=== PATIENT | female | born 1995 | race Hispanic/Latino ===

== ENCOUNTER 2023-07-10 01:23 | Day surgery (SDC) | payer OTHER, SELFPAY ==
--- NOTE | 2023-07-07 12:14 | PC.NURSE ---
Addendum entered by Calista Alfrde RN 07/07/23 13:23: PATIENT DECIDING ON PHARMACY- WILL TELL US ON DAY OF SURGERY. SALVAGE MECHANIC'S NAME IS SUSAN, THEY WILL BRING HER PHONE NUMBER ON DAY OF SURGERY. Original Note: Report to the Outpatient Waiting Room, entrance under the green pavilion located off [facility], at time __8:30AM on date ___07/10/23____. Planned Procedure Time: __10:30AM . Time changes happen often and if your time is changed the preop area will call you the afternoon before. - You and your visitor will be asked to self-screen and do not enter if you have any COVID symptoms. - A mask is optional within the hospital at this time. Patients may have clear liquids (water, carbonated beverages, clear teas, apple juice) until 3 hours prior to surgery with a maximum of 20 ounces. - No food from midnight until time of surgery. Take the following medications with a SIP of water the morning of surgery: NONE DO NOT STOP ANY OF YOUR OTHER PRESCRIPTION MEDICATIONS PRIOR TO SURGERY ?EXCEPT THE FOLLOWING Medications to discontinue per physician NONE Date to take last dose Please no make-up, nail slovenian, hairspray, perfume, deodorant, or body powder the day of surgery. No jewelry (including any body piercings) or valuables the day of surgery, leave them at home. Please take a shower or bath the night before, or the morning of, surgery with an antibacterial soap. Wear comfortable, loose fitting clothing. - Jewelry must be removed prior to entering the operating room. Rings and piercings that are not removed may be cut off. - The hospital will not accept responsibility for valuables. - Please leave all valuables, including medications, at home the day of surgery. If you are going home after surgery, a licensed auto parts delivery driver must drive you home. - NO public transportation without another adult if you receive anesthesia. - We recommend that an adult stay with you for 24 hours following discharge. - We also recommend that you do not drive, make important decision, drink alcoholic beverages, or take any drugs that were not prescribed by your health care provider for at least 24 hours after your discharge time. Follow any additional instructions given to you from your surgeon. If you or anyone in your household have experienced Covid symptoms in the past week, please notify your surgeon or the nurse liaison at the phone number below for possible testing. Telephone instructions given to ___PATIENT and asked if any additional questions and then verbalized understanding. Patient advised to call surgeon office or pre surgery nurse liaison [phone] if any additional questions.
[2023-07-07 12:35] VITALS: BMI 26.7
[2023-07-10] VITALS (9 sets, daily range): BP systolic 96–109; BP diastolic 60–72; PULSE 64–78; RESP 10–18; TEMP 36.4; O2SAT 98–100
[2023-07-10] MEDS: LACTATED RINGERS 1,000 ML 30 ML IV CONT ×2 (08:30→10:34)
[2023-07-10] MEDS: GABAPENTIN 300 MG CAPSULE PO (08:30)
[2023-07-10] MEDS: ACETAMINOPHEN 500 MG TABLET 1000 MG PO (08:30)
--- NOTE | 2023-07-10 08:42 | P.PNAN_ITS ---
Anes - Initial Pre Proc Eval Procedure: Operation Date: 07/10/23 09:00 Proposed Procedures p Diagnostic Laparoscopy, Bilateral Laparoscopic Salpingectomy - Daniella Ochoa DO Date/Time: 07/10/23 08:42 Surgeon: Daniella Ochoa DO Pre Op Diagnosis: desires sterilization Patient Data Age: 28 Gender: F Height: 1.47 m Weight: 58 kg Allergies Allergy/AdvReac Type Severity Reaction Status Date / Time No Known Allergies Allergy Verified 07/07/23 12:33 Home Medications Medication Instructions Recorded Confirmed Type No Home Medications 07/07/23 07/07/23 History Patient hx anesthesia problems: none Family hx anesthesia problems: none Results Review: All pre-operative results and documents have been reviewed as part of the pre- operative evaluation. [facility] Social History Social History Smoking status: Never smoker Living arrangements: with family Additional living arrangements comments: SIGNIFICANT OTHER & CHILDREN Spiritual care concerns: No Anes - Eval Final PreProcedure Day of Procedure 07/10/23 08:42 Patient weight: overweight Heart: regular rate and rhythm Lungs: clear to auscultation Airway: Mallampati scale class II Neurological: alert and oriented Last oral intake: >/= 8 hours ASA classification: II Emergent: no Anesthetic plan: proceed Anesthesia type and monitoring: general ETT and standard monitoring Results Review: All pre-operative results and documents have been reviewed as part of the pre- operative evaluation. Informed Consent: The patient's anesthetic plan and its attendant risks and benefits were discussed with the patient/family/POA. Questions were solicited and answers provided to the satisfaction of the patient/family/POA.
--- NOTE | 2023-07-10 08:49 | S_PTH ---
PATIENT: Mel Lilly LOC: [facility] U#:[id number] AGE/SX: 28/F ROOM: RE07/10/[address]: Daniella Ochoa, DO : 1995 BED: DIS: 07/10/2023 SPEC #: [id number] RECD: 07/10/23 11:46 STATUS: LAURA SERRA #: [id number] ENDER: 07/10/23 08:[address]: Gabriela,Daniella Grier DEPT: [facility] Surgical RECD BY: Jana Mars ENTERED: 07/10/23 11:46 SP TYPE: Surgical OTHR DR: UNKNOWN,DOCTOR Tissues: A - Fallopian Tube Single B - Fallopian Tube Single Procedures: Gross and Microscopic Level 2 Hematoxylin and Eosin Stain
--- NOTE | 2023-07-10 08:59 | WPDHPUPDATE1 ---
History and Physical Update Update Date/Time: 07/10/23 08:59 History and Physical has been reviewed, including an updated exam of the patient. There are NO changes in the patient's condition. Risks, benefits, and alternatives have been discussed and questions answered. Patient agrees to proceed with procedure.
--- NOTE | 2023-07-10 08:59 | PM.IMHP ---
H&P: HPI History of Present Illness Date/Time: 07/10/23 08:59 Chief Complaint: I'm here to have my tubes out Narrative: Patient here desires permanent sterilization via diagnostic laparoscopy, bilateral salpingectomy Review of Systems Review of Systems: All systems reviewed & are unremarkable except as noted in HPI and below PMFSH Social History Social History Smoking status: Never smoker Living arrangements: with family Additional living arrangements comments: SIGNIFICANT OTHER & CHILDREN Spiritual care concerns: No Meds Home Medications and Allergies Home Medications Medication Instructions Recorded Confirmed Type No Home Medications 07/07/23 07/07/23 History Allergies Allergy/AdvReac Type Severity Reaction Status Date / Time No Known Allergies Allergy Verified 07/07/23 12:33 Exam Const: General: comfortable and no acute distress Eyes: General: appearance normal, both eyes and all related structures Resp: Effort & Inspection: normal respiratory effort Auscultation: clear to auscultation bilaterally Cardio: Rate: regular rate Rhythm: regular rhythm GI: GI Palp: Yes Soft to palpation Auscultation: normal bowel sounds Assessment and Plan Assessment and plan (1) Sterilization: Code(s): Z30.2 - Encounter for sterilization Status: Acute
[2023-07-10] MEDS: BUPivacaine HCL 0.25% PF 30 ML VIAL INFILTRATE (09:21)
--- NOTE | 2023-07-10 09:59 | P.OP_ITS ---
Procedure Note - Detailed Date of Procedure 07/10/23 Pre-op Diagnosis desires sterilization Post-op Diagnosis Same Procedure Performed Diagnostic laparoscopy, bilateral salpingectomy Surgeon Daniella Ochoa, DO Anesthesia General Indications Desires permanent sterilization Findings Normal appearing vulva and vaginal canal. Medium sized cervix. Uterus sounded to 7 cm. Internally, the liver, bowel and pelvic organs were normal in appearance. Description of Procedure Patient was taken to the operating room where she was placed under general anesthesia. She was prepped and draped in normal sterile fashion in a dorsal lithotomy position. No preoperative antibiotics were indicated. A time-out was performed. A speculum was placed in the vagina and the cervix was visualized. The posterior lip was grasped with a long Allis clamp. The cervix was dilated up to accommodate a disposable uterine manipulator. The manipulator was placed, the speculum and Allis were removed. Gloves were changed and attention was then turned to the abdomen. The skin above the umbilicus was grasped with 2 penetrating towel clamps and the area was injected with local. A small incision was made and a Veress needle was introduced. The saline water drop test was performed to confirm intraperitoneal placement. The abdomen was filled with CO2 gas. The Veress needle was then replaced with a 5 mm Optiview trocar. Initial insertion of the trocar showed that we were underneath the omentum. There was no evidence of bowel or vascular injury. The trocar was retracted some of the omentum fell into place as normal. Patient was then placed in steep Trendelenburg position. The bladder was noted to be quite full, therefore I placed a Solitario catheter and changed my gloves again. Additional port sites in the right and left lower quadrants were identified, injected and incised. 5 mm trocars were inserted under direct visualization. Survey of the abdomen and pelvis appeared normal, there were no suspicious lesions. The right tube was then elevated and cauterized and transected off. It was passed off through the assistant plant manager port. Procedure was repeated in identical fashion on the left-hand side. Both surgical pedicles were reinspected and found to be hemostatic. The instruments and trocars were removed. The CO2 gas was allowed to escape. The incisions were closed with subcuticular 4-0 Monocryl and covered with skin glue. The uterine manipulator was removed. The Solitario catheter was removed. The patient was taken to the recovery room in stable condition. All instrument and sponge counts were correct at the conclusion of the procedure. Estimated Blood Loss 5 IV Fluids 1,000 Drains No Packing No Pathology Yes Complications No immediate complications Condition Stable Disposition PACU
[2023-07-10] MEDS: oxyCODONE HCL (*CRX) 5 MG TAB IR PO (11:44)
== END 2023-07-10 12:10 | disposition home or self-care (01) ==
PROVIDERS: Visit Provider Obstetrics & Gynecology Gynecologic Oncology
PROC: (CPT 49320; principal; 2023-07-10 09:00)
DX: Z30.2 Encounter for sterilization (principal)
CPT/HCPCS: 58661; 88302; A9270; J2003; J2250; J2405; J2704; J3010; J7120